=== PATIENT | female | born 1945 | race Two or more races ===

== ENCOUNTER 2024-07-14 14:15 | Emergency (ER) | payer MEDICARE, MEDICAID, SELFPAY ==
[2024-07-14 14:23] VITALS: PULSE 90; O2SAT 96
[2024-07-14 14:49] VITALS: BP 133/74; PULSE 84; RESP 18; TEMP 37.6; O2SAT 99
--- NOTE | 2024-07-14 14:50 | EKG_ITS ---
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
--- NOTE | 2024-07-14 14:50 | XR_ITS ---
Examination: CT brain head without contrast. 2-D sagittal coronal reconstructions Date and time of exam:July 14, 2024 1532 hrs. Indications: Dizziness lightheadedness today CTDI: vol (mGy):44.5 DLP: (mGycm):884 Technique: Multiple CT axial sections of the brain have been obtained, 5 mm slice thickness. Contrast has not been administered. 2-D sagittal, coronal reconstructions have been obtained Low dose protocols were performed. One or more of the following dose reduction techniques were used; automated exposure control, adjustment of the mA and/or KV according to patient size, use of iterative reconstruction technique. Findings: No significant ventricular enlargement. Intra-axial or extra-axial hemorrhage density is not seen. No mass effect or midline shift Basal cisterns are not remarkable. Fourth ventricle is midline. Cranial vault intact. Impression: Negative for acute hemorrhage, mass effect or midline shift Advise clinical correlation follow-up accordingly
--- NOTE | 2024-07-14 14:51 | PD.EDRME ---
Rapid Medical Screening Exam RME Arrival date/time: 07/14/24 14:15 78-year-old female with a history of hypertension, hyperlipidemia presents to the emergency room with a chief complaint of dizziness, and near syncope x 3 hours. I have greeted and performed a focused initial assessment of this patient. A comprehensive ED assessment and evaluation of the patient, analysis of all test results, and completion of the medical decision making process will be conducted by additional ED providers. Chief Complaint: Dizziness Time Seen by Provider: 07/14/24 14:38 Vital signs: Vital Signs Temperature 99.7 F 07/14/24 14:49 Pulse Rate 84 07/14/24 14:49 Respiratory Rate 18 07/14/24 14:49 Blood Pressure 133/74 H 07/14/24 14:49 Pulse Oximetry (%) 99 07/14/24 14:49 Oxygen Delivery Method Room Air 07/14/24 14:49 Vital signs reviewed by provider: Yes
[2024-07-14] MEDS: MECLIZINE HCL 25 MG TABLET 50 MG PO (15:05)
[2024-07-14 15:37] LABS: Basophils % (Auto) 0 % (0-2.5); Eosinophils # (Auto) 0.9 Thou/mm3 (0.0-0.5); Eosinophils % (Auto) 5 % (0-10); Hematocrit 35.5 % (36.0-46.0); Hemoglobin 11.8 g/dL (12.0-16.0); Immature Granulocytes % (Auto) 0 % (0-0); Immature Granulocytes Auto 0.07 Thou/mm3 (0.00-0.00); Lymphocytes # (Auto) 3.2 Thou/mm3 (1.0-4.8); Lymphocytes % (Auto) 20 % (10-50); Mean Corpuscular HGB Conc 33.2 g/dl (31.0-37.0); Mean Corpuscular Hemoglobin 31.6 pg (25.0-35.0); Mean Corpuscular Volume 95 fL (80-100); Monocytes # (Auto) 1.4 Thou/mm3 (0.0-0.8); Monocytes % (Auto) 9 % (0-12); Neutrophils # (Auto) 10.4 Thou/mm3 (1.8-7.7); Neutrophils % (Auto) 65 % (37-80); Nucleated Red Blood Cell % 0 /100 WBC (0); Platelet Count 283 Thou/mm3 (140-440); RDW Standard Deviation 43.8 fL (36.4-46.3); Red Blood Count 3.73 Miln/mm3 (4.00-5.20)
[2024-07-14 15:43] LABS: Collection Type, Urine Clean Catch
[2024-07-14 15:48] LABS: Bilirubin,Urine Negative (Negative); Blood,Urine 2+ (Negative); Clarity,Urine Clear (Clear/Hazy); Color,Urine Lt-Yellow (Lt Yel-Yel); Glucose, Urine Trace (Negative); Hyaline Casts,Urine < 1 /hpf (0-1); Ketones,Urine Negative (Negative); Leukocyte Esterase,Urine Positive (Negative); Nitrite,Urine Negative (Negative); PH,Urine 6.5 (5.0-7.0); Protein,Urine Trace (Neg - Trace); RBC,Urine 99 /hpf (0-3); Specific Gravity,Urine 1.021 (1.001-1.035); Squamous Epithelial Cell,Urine 2 /hpf (0-5); Urobilinogen,Urine Negative mg/dL (0.0-1.0); WBC,Urine 16 /hpf (0-5)
[2024-07-14 15:58] LABS: B-Type Natriuretic Peptide 85 pg/mL (0-100)
[2024-07-14 15:59] LABS: Alanine Aminotransferase 14 U/L (10-49); Albumin, Serum 4.9 gm/dL (3.4-4.8); Albumin/Globulin Ratio 1.5 (1.2-2.2); Alkaline Phosphatase 101 U/L (46-116); Anion Gap 7 (7-16); Aspartate Amino Transferase 21 U/L (0-34); BUN/Creatinine Ratio 28 Ratio (12-20); Bilirubin,Total 0.4 mg/dL (0.3-1.2); Blood Urea Nitrogen 36 mg/dL (9-23); Calcium 9.7 mg/dL (8.3-10.6); Calcium (Corrected) 9.7 mg/dL (8.5-10.1); Carbon Dioxide 26.2 mMol/L (20.0-31.0); Chloride 100 mMol/L (98-107); Creatinine (Component) 1.3 mg/dL (0.6-1.3); Globulin 3.2 gm/dL (2.3-3.5); Glucose 201 mg/dL (74-106); Osmolality,Calculated 280 (275-295); Potassium 5.2 mMol/L (3.4-5.1); Sodium 133 mMol/L (136-145); Total Protein 8.1 gm/dL (5.7-8.2); Troponin I < 0.020 ng/mL (0.0-0.045); eGFR 42 See Note
[2024-07-14 19:23] VITALS: BP 162/78; PULSE 98; RESP 18; TEMP 37.7; O2SAT 97
--- NOTE | 2024-07-14 19:38 | EDNOTE_ITS ---
ED Dizzyness RME/HPI General Chief Complaint: Dizziness Stated Complaint: WEAKNESS/ DIZZINESS Time Seen by Provider: 07/14/24 14:38 Arrival date/time: 07/14/24 14:15 RME / HPI RME / HPI Narrative: 07/14/24 14:15 78-year-old female with a history of hypertension, hyperlipidemia presents to the emergency room with a chief complaint of dizziness, and near syncope x 3 hours. I have greeted and performed a focused initial assessment of this patient. A comprehensive ED assessment and evaluation of the patient, analysis of all test results, and completion of the medical decision making process will be conducted by additional ED providers. Dr. Quesada?s Main ED Evaluation: 78yo female with a history of HTN, HLD presents to the ED for a chief complaint of dizziness. Patient states she developed diz ziness 3 hours [employer], describing it as feeling lightheaded. Patient reports associated headache, nausea, one emetic episode, chills, and dysuria. Patient denies any chest pain, abdominal pain, shortness of breath or any other associated symptoms. Denies any abdominal PSH. No known allergies. Patient has a follow-up appointment on 07/20/24 with her PCP. Related Data Home Medications ?Medication ?Instructions ?Recorded ?Confirmed metformin 850 mg tablet 500 mg PO QDAC #0 tabs 07/06 (Glucophage) Losartan Potassium * (COZAAR *) 100 mg PO QDAY #0 tabs 03/13/17 Multivitamins * (CENTRUM *) 1 tab PO QDAY #0 tabs 02/21 05/09 aspirin 81 mg chewable tablet 81 mg PO QDAY ##0 lovastatin 20 mg tablet 20 mg PO HS #0 tabs 03/13/17 omega xl 2 tab PO QDAY ##0 03/13/17 Previous Rx's ?Medication ?Instructions ?Recorded meclizine 25 mg chewable tablet 25 mg PO BID PRN dizzi ness 5 days 07/14/24 (Antivert) #10 tabs nitrofurantoin 100 mg PO BID Urinary tract 07/14/24 monohydrate/macrocrystals 100 mg infection 7 days #14 caps capsule (Macrobid) phenazopyridine 200 mg tablet 200 mg PO TID PRN pain 6 doses #6 07/14/24 (Pyridium) tabs Allergies Allergy/AdvReac Type Severity Reaction Status Date / Time No Known Allergies Allergy Unverified 07/14/24 14:56 Review of Systems Review of Systems Systems Reviewed: All systems reviewed, normal except as documented Past Medical History Social History SMOKING STATUS: Never smoker ED Exam Narrative Physical exam: GENERAL APPEARANCE: alert and oriented x 4, well-developed, well-nourished, no acute distress VITALS: All vitals were reviewed and the pulse ox is 97% on room air, which is normal according to my interpretation. HEENT: Normocephalic, atraumatic; pupils equal, round, reactive to light; EOMI; mucous membranes pink, moist; oropharynx clear NECK: Supple LUNGS: CTABL; no wheezes, no rales, no rhonchi HEART: Regular rate, regular rhythm; normal S1, S2; no murmurs ABDOMEN: non distended; normal BS; soft, no tenderness, no guarding, no rebound; no masses, no organomegaly, no hernia BACK: no CVA tenderness EXTREMITIES: atraumatic; no edema NEUROLOGIC: awake; alert and oriented x4; cranial nerves II-XII grossly intact; no focal sensory or motor deficits PSYCHIATRIC: appropriate mood and affect SKIN: warm, dry, normal color; no rashes Course Quality Measures none Orders Category Date Time Status Bedside Blood Glucose NOW Care 07/14/24 14:50 Completed EKG (ED ONLY) *Do not use* NOW Care 07/14/24 14:50 Completed Orthostatic Vitals NOW Care 07/14/24 14:[address] head/brain wo con Stat Exams 07/14/24 14:50 Completed EKG (ED Only) Stat Exams 07/14/24 14:50 Draft BNP [B-Type Natriuretic Peptide] Stat Lab 07/14/24 15:12 Completed CBC Stat Lab 07/14/24 15:12 Completed Comprehensive Metabolic Panel Stat Lab 07/14/24 15:12 Completed Troponin I Stat Lab 07/14/24 15:12 Completed Urinalysis Stat Lab 07/14/24 15:24 Completed Urine Culture Stat Lab 07/14/24 15:24 Received Meclizine HCl [Antivert] Med 07/14/24 14:50 Discontinued 50 mg PO X1 ONE Vital Signs Vital signs: Vital Signs Temperature 99.7 F 07/14/24 14:49 Pulse Rate 84 07/14/24 14:49 Respiratory Rate 18 07/14/24 14:49 Blood Pressure 133/74 H 07/14/24 14:49 Pulse Oximetry (%) 99 07/14/24 14:49 Oxygen Delivery Method Room Air 07/14/24 14:49 Dizziness MDM Narrative MDM Narrative:: Scribe Attestation: 07/14/24 - Abril Correa am scribing for and in the pre sence of Dr. Quesada. Patient states her symptoms subsided after she received Meclizine. Discussed results with her and family at the bedside. Patient is stable to be discharged home. Patient data External records reviewed:: [facility] previous records (Per chart review, patient has no previous ED visits or admissions to this facility.) Clinical information provided by:: patient Social determinants that could affect healthcare access:: none Patient has the following chronic illnesses:: HTN, HLD How is presenting disease/condition affected by chronic disease/condition?: uneffected by Evaluation data The following diagnostics were reviewed and interpreted by me:: lab results, radiology exam(s) and EKG tracing(s) Lab and/or radiology exams considered but not ordered:: none Interpretation Summary: WBC count is elevated at 16.0, HnH is normal, BUN is 36, Glucose is 201, Troponin is normal, BNP is normal, UA is positive for a UTI, according to my interpretation. EKG done at 1453, NSR, rate of 81, normal axis, no ectopy, no acute ischemia, according to my interpretation. [facility] Report Signed Patient: PLACIDO GONZALEZ [facility]. Record#: [id number] Birthdate: 1945 Age/Sex: 78 / F [facility] Att[facility] Dr: Ordering Physician: Eddie Vargas Date of Service: 07/14/24 Procedure(s): CT head/brain wo con Accession Number(s): [id number] cc: Eddie Vargas; Varun Linares MD; Hans Willis MD~ Examination: CT brain head without contrast. 2-D sagittal coronal reconstructions Date and time of exam:July 14, 2024 1532 hrs. Indications: Dizziness lightheadedness today CTDI: vol (mGy):44.5 DLP: (mGycm):884 Technique: Multiple CT axial sections of the brain have been obtained, 5 mm slice thickness. Contrast has not been administered. 2-D sagittal, coronal reconstructions have been obtained Low dose protocols were performed. One or more of the following dose reduction techniques were used; automated exposure control, adjustment of the mA and/or KV according to patient size, use of iterative reconstruction technique. Findings: No significant ventricular enlargement. Intra-axial or extra-axial hemorrhage density is not seen. No mass effect or midline shift Basal cisterns are not remarkable. Fourth ventricle is midline. Cranial vault intact. Impression: Negative for acute hemorrhage, mass effect or midline shift Advise clinical correlation follow-up accordingly Dictated By: Hans Willis MD Signed By: <Electronically signed by Hans Willis MD in [place]> 07/14/24 1709 Medications / Prescriptions Medications or Prescriptions considered but not ordered:: none Medication administrations:: Medication Administration History Discontinued Medications Meclizine HCl (Meclizine Hcl 25 Mg Tablet) 50 mg PO X1 ONE Stop: 07/14/24 14:51 Last Admin: 07/14/24 15:05 Dose: 50 mg Documented By: see above Consultations Consultation(s) initiated? (list below): No Diagnosis Dizziness Differential Diagnosis: other (peripheral vertigo, lightheadedness, dehydration, cardiac versus infectious) Most likely diagnosis given after review of the tests above:: see clinical impression below Admission Indicated Admission indicated?: not indicated Admission Request Was there a request for admission?: No Disposition Plan Disposition Plan: Discharge Discharge Attestation Discharge Attestation: The patient and all family members were given an opportunity to ask questions and understood the discharge instructions. Discharge instructions specifically effects, indications for sooner follow up or return to the emergency department, and the expected course of current diagnosis. Patient condition: Stable Discharge Plan Plan Patient Disposition: HOME (Self Care) Prescriptions/Referrals Prescriptions/Med Rec: New nitrofurantoin monohyd/m-cryst [Macrobid] 100 mg capsule 100 mg PO BID 7 Days Qty: 14 0RF Rx Instructions: must administer with a meal/food phenazopyridine [Pyridium] 200 mg tablet 200 mg PO TID PRN (Reason: pain) Qty: 6 0RF meclizine [Antivert] 25 mg tablet,chewable 25 mg PO BID PRN (Reason: dizziness) 5 Days Qty: 10 0RF No Action metformin [Glucophage] 850 MG tablet 500 mg PO QDAC Qty: 0 aspirin 81 MG tablet,chewable 81 mg PO QDAY Qty: 0 lovastatin 20 MG tablet 20 mg PO HS Qty: 0 Losartan Potassium * (COZAAR *) 100 MG tablet 100 mg PO QDAY Qty: 0 Multivitamins * (CENTRUM *) 1 EACH tablet 1 tab PO QDAY Qty: 0 omega xl 2 tab PO QDAY Qty: 0 Referrals: Varun Linares MD [Primary Care Provider] - In 1 week Problem List Clinical Impression: UTI (urinary tract infection), Vomiting, Episodic peripheral vertigo Patient/Caregiver Discharge Instructions Discharge Activity: activity as tolerated Diet Instructions: Please drink plenty of fluids when you get home. You can use Gatorade or Pedialyte and or chicken broth and even some water. Education Materials: Urinary Tract Infections in Women, Anatomy of the Ear, ED BPV Vertigo, ED Diet for Vomiting or ... Additional Instructions: Please return to the emergency department for any worsening or any further medical problems. Otherwise you should follow-up with your primary care doctor within the next several days Print Language: Slovak Stand Alone Forms: [facility] Award Info., Patient Portal Info Letter
== END 2024-07-14 19:47 | disposition home or self-care (01) ==
PROVIDERS: Nurse Practitioner Family; Emergency Provider Emergency Medicine; PCP Family Medicine
DX: N39.0 Urinary tract infection, site not specified (principal); H81.399 Other peripheral vertigo, unspecified ear; E78.5 Hyperlipidemia, unspecified; I10 Essential (primary) hypertension; R51.9 Headache, unspecified
CPT/HCPCS: 36415; 70450; 80053; 81001; 83880; 84484; 85025; 87086; 93005; 99284; A9270